=== PATIENT | female | born 1980 | race African-American/Black ===

== ENCOUNTER 2020-12-21 00:56 | Inpatient (IN) | payer BC ==
[2020-12-21] MEDS ORDERED: Terbutaline 1 MG/ML SDV SUBCUT PRN (01:01)
[2020-12-21] MEDS ORDERED: Butorphanol 1 MG/ML SDV IVPUSH PRN (01:01)
[2020-12-21] MEDS ORDERED: Sodium Chloride 0.9% 10 ML Syringe FLUSH PRN (01:01)
[2020-12-21] MEDS ORDERED: hydrOXYzine Pamoate 25 MG Cap PO PRN (01:01)
[2020-12-21] MEDS ORDERED: Methylergonovine 0.2 MG/1 ML Amp IM PRN (01:01)
[2020-12-21] MEDS ORDERED: Misoprostol 200 MCG Tab PO PRN (01:01)
[2020-12-21] MEDS ORDERED: Sodium Chloride 0.9% 2.5 ML Syringe FLUSH PRN (01:01)
[2020-12-21] MEDS ORDERED: Tranexamic Acid 1,000 MG in Sodium Chloride 0.9% 100 ML IV PRN (01:01)
[2020-12-21] MEDS ORDERED: Lidocaine 1% 50 ML MDV INJECT PRN (01:01)
[2020-12-21] MEDS ORDERED: Sodium Chloride 0.9% 10 ML SDV IV PRN (01:01)
[2020-12-21] MEDS ORDERED: Carboprost Tromethamine 250 MCG/1 ML Amp IM PRN (01:01)
[2020-12-21] MEDS ORDERED: Water For Irrigation,Sterile 1,000 ML Container IRR PRN (01:01)
[2020-12-21] MEDS ORDERED: Nalbuphine 10 MG/1 ML Vial IVPUSH PRN (01:01)
[2020-12-21] MEDS ORDERED: Ondansetron 4 MG/2 ML SDV IVPUSH PRN (01:01)
[2020-12-21] MEDS ORDERED: Oxytocin/0.9 % Sodium Chloride 30 UNIT/500 ML BAG IV SCH ×2 (01:15)
[2020-12-21] MEDS ORDERED: Misoprostol 25 MCG (1/4 of 100 MCG) Tab VAG PRN ×2 (02:00→06:00)
[2020-12-21] MEDS ORDERED: Misoprostol 25 MCG (1/4 of 100 MCG) Tab PO PRN ×2 (02:00→06:00)
--- NOTE | 2020-12-21 02:06 | PCM.LDHP ---
L&D History of Present Illness - General Date of Service: 12/21/20 Admit Problem/Dx: Patient Status Order with Admit Dx/Problem 12/21/20 01:03 Patient Status [ADT] Routine Admission Diagnosis/Problem Admission Diagnosis/Problem Source of Information: Patient History Limitations: Reports: No Limitations - History of Present Illness Introduction:: 40yo @ 39w GA here for elective IOL. care c/b AMA status and elevated BPs not requiring treatment. Patient was on aspirin. care otherwise unremarkable: A+, Abs screen neg, RI, RPR NR, HBsAg neg, HIV neg, GC/Chlam neg, GBS neg. Reports mild intermittent Ctx for the past few days. Denies VB, LOF. Reports good FM - Related Data Allergies/Adverse Reactions: Allergies Allergy/AdvReac Type Severity Reaction Status Date / Time No Known Allergies Allergy Verified 12/21/20 03:15 Home Medications: Home Meds Aspirin 81 mg PO DAILY 12/17/20 [History] H&P Review of Systems - Review of Systems: Review Of Systems: See Below General: Reports: No Symptoms HEENT: Reports: No Symptoms Pulmonary: Reports: No Symptoms Cardiovascular: Reports: No Symptoms Gastrointestinal: Reports: No Symptoms Genitourinary: Reports: No Symptoms Musculoskeletal: Reports: No Symptoms Skin: Reports: No Symptoms Psychiatric: Reports: No Symptoms Neurological: Reports: No Symptoms Hematologic/Lymphatic: Reports: No Symptoms Immunologic: Reports: No Symptoms L&D Exam - Exam Exam: See Below - OB Specific Contraction Intensity: Mild Movement: Active Heart Tones: Present Presentation: Vertex Estimated Weight: 7.5lbs - Barger Score Barger Score Cervix Position: Midposition Barger Score Consistency: Medium Barger Score Effacement: 31-50% Barger Score Dilation: 1-2 cm Barger Score Infant's Station: -3 Barger Score Total: 4 - Exam General: Alert, Oriented HEENT: Conjunctiva Clear Lungs: Normal Respiratory Effort Cardiovascular: Regular Rhythm GI/Abdominal Exam: Soft, Non-Tender Extremities: Normal Inspection Skin: Warm, Dry Psychiatric: Alert, Normal Affect, Normal Mood - Patient Data Result Diagrams: 12/21/20 02:20 - Problem List (1) Term SNOMED Code(s): 07503487 ICD Code: Z34.90 - ENCNTR FOR SUPRVSN OF NORMAL , UNSP, UNSP TRIMESTER Status: Acute Current Visit: Yes (2) Encounter for elective induction of labor SNOMED Code(s): 706747260 ICD Code: Z34.90 - ENCNTR FOR SUPRVSN OF NORMAL , UNSP, UNSP TRIMES TER Status: Acute Current Visit: Yes Problem List Initiated/Reviewed/Updated: Yes Orders Last 24hrs: Active Orders 24 hr Category Date Time Status Patient Status [ADT] Routine ADT 12/21/20 01:03 Active Bedrest Bathroom Privileges [RC] ASDIRECTED Care 12/21/20 01:03 Active Communication Order [RC] ASDIRECTED Care 12/21/20 01:03 Active Communication Order [RC] ASDIRECTED Care 12/21/20 01:03 Active Communication Order [RC] ASDIRECTED Care 12/21/20 01:03 Active Heart Tones [RC] CONTINUOUS Care 12/21/20 01:03 Active Non Stress Test [RC] PER UNIT ROUTINE Care 12/21/20 01:03 Active May Shower [RC] ASDIRECTED Care 12/21/20 01:03 Active Notify Provider [RC] PRN Care 12/21/20 01:03 Active Notify Provider [RC] PRN Care 12/21/20 01:03 Active Notify Provider [RC] PRN Care 12/21/20 01:03 Active Notify Provider [RC] STAT Care 12/21/20 01:03 Active Oxygen Therapy [RC] ASDIRECTED Care 12/21/20 01:03 Active Peripheral IV Care [RC] PRN Care 12/21/20 01:01 Active Up ad Zofia [RC] ASDIRECTED Care 12/21/20 01:03 Active Vaginal Exam [RC] PRN Care 12/21/20 01:03 Active Vaginal Exam [RC] PRN Care 12/21/20 01:03 Active Vital Signs [RC] PER UNIT ROUTINE Care 12/21/20 01:03 Active Regular Diet [DIET] Diet 12/21/20 Breakfast Active CBC W/O DIFF,HEMOGRAM [HEME] Routine Lab 12/21/20 01:03 Ordered CORONAVIRUS COVID-19 BONG [MOLEC] Urgent Lab 12/21/20 01:01 Ordered RPR (SYPHILIS SERO) W/ RFLX [REF] Routine Lab 12/21/20 01:03 Ordered TYPE AND SCREEN [BBK] Routine Lab 12/21/20 01:03 Ordered Butorphanol [Stadol] Med 12/21/20 01:01 Active 1 mg IVPUSH Q1H PRN Carboprost Tromethamine [Hemabate DS] Med 12/21/20 01:01 Active 250 mcg IM ASDIRECTED PRN Lactated Ringers [Ringers, Lactated] 1,000 ml Med 12/21/20 01:15 Active IV ASDIRECTED Lidocaine 1% [Xylocaine 1%] Med 12/21/20 01:01 Active 50 ml INJECT ONETIME PRN Methylergonovine [Methergine] Med 12/21/20 01:01 Active 0.2 mg IM ASDIRECTED PRN Nalbuphine [Nubain] Med 12/21/20 01:01 Active 10 mg IVPUSH Q1H PRN Ondansetron [Zofran] Med 12/21/20 01:01 Active 4 mg IVPUSH Q6H PRN Oxytocin/0.9 % Sodium Chloride [Oxytocin 30 Unit/500 ML Med 12/21/20 01:15 Active -NS] 30 unit in 500 ml IV TITRATE Oxytocin/0.9 % Sodium Chloride [Oxytocin 30 Unit/500 ML Med 12/21/20 01:15 Active -NS] 30 unit in 500 ml IV TITRATE Sodium Chloride 0.9% [Normal Saline] Med 12/21/20 01:01 Active 10 ml IV ASDIRECTED PRN Sodium Chloride 0.9% [Saline Flush] Med 12/21/20 01:01 Active 10 ml FLUSH ASDIRECTED PRN Sodium Chloride 0.9% [Saline Flush] Med 12/21/20 01:01 Active 2.5 ml FLUSH ASDIRECTED PRN Terbutaline [Brethine] Med 12/21/20 01:01 Active 0.25 mg SUBCUT ASDIRECTED PRN Tranexamic Acid [Cyklokapron] 1,000 mg Med 12/21/20 01:01 Active Sodium Chloride 0.9% [Normal Saline] 100 ml IV ONETIME Water For Irrigation,Sterile [Sterile Water for Med 12/21/20 01:01 Active Irrigation] 1,000 ml IRR ASDIRECTED PRN hydrOXYzine pamoate [Vistaril] Med 12/21/20 01:01 Active 50 mg PO BEDTIME PRN miSOPROStoL [Cytotec] Med 12/21/20 01:01 Active 200 mcg PO ONETIME PRN miSOPROStoL [Cytotec] Med 12/21/20 02:00 Active 25 mcg PO ONETIME PRN miSOPROStoL [Cytotec] Med 12/21/20 06:00 Active 25 mcg PO Q4H PRN miSOPROStoL [Cytotec] Med 12/21/20 02:00 Active 25 mcg VAG ONETIME PRN miSOPROStoL [Cytotec] Med 12/21/20 06:00 Active 25 mcg VAG Q4H PRN Scalp Electrode [WOMSER] Per Unit Routine Oth 12/21/20 01:03 Ordered Medication Administration Instruction [OM.PC] Q3H Oth 12/21/20 01:15 Ordered Peripheral IV Insertion Adult [OM.PC] Routine Oth 12/21/20 01:03 Ordered Resuscitation Status Routine Resus Stat 12/21/20 01:01 Ordered Medication Orders Butorphanol Tartrate (Butorphanol 1 Mg/Ml Sdv) 1 mg IVPUSH Q1H PRN PRN Reason: Pain Carboprost Tromethamine (Carboprost Tromethamine 250 Mcg/1 Ml Amp) 250 mcg IM ASDIRECTED PRN PRN Reason: Post Hemorrhage Hydroxyzine Pamoate (Hydroxyzine Pamoate 25 Mg Cap) 50 mg PO BEDTIME PRN PRN Reason: Sleep Oxytocin/Sodium Chloride (Oxytocin 30 Unit/500 Ml-Ns) 30 unit in 500 mls @ 999 mls/hr IV TITRATE ANISHA Tranexamic Acid 1,000 mg/ (Sodium Chloride) 110 mls @ 660 mls/hr IV ONETIME PRN PRN Reason: Bleeding Oxytocin/Sodium Chloride (Oxytocin 30 Unit/500 Ml-Ns) 30 unit in 500 mls @ 2 mls/hr IV TITRATE ANISHA; Protocol Lactated Ringer's (Ringers, Lactated) 1,000 mls @ 150 mls/hr IV ASDIRECTED ANISHA Lidocaine HCl (Lidocaine 1% 50 Ml Mdv) 50 ml INJECT ONETIME PRN PRN Reason: Laceration repair Methylergonovine Maleate (Methylergonovine 0.2 Mg/1 Ml Amp) 0.2 mg IM ASDIRECTED PRN PRN Reason: Post Hemorrhage Misoprostol (Misoprostol 200 Mcg Tab) 200 mcg PO ONETIME PRN PRN Reason: Post Hemorrhage Misoprostol (Misoprostol 25 Mcg (1/4 Of 100 Mcg) Tab) 25 mcg VAG ONETIME PRN PRN Reason: Cervical Ripening Misoprostol (Misoprostol 25 Mcg (1/4 Of 100 Mcg) Tab) 25 mcg VAG Q4H PRN PRN Reason: Cervical Ripening Misoprostol (Misoprostol 25 Mcg (1/4 Of 100 Mcg) Tab) 25 mcg PO ONETIME PRN PRN Reason: Cervical Ripening Misoprostol (Misoprostol 25 Mcg (1/4 Of 100 Mcg) Tab) 25 mcg PO Q4H PRN PRN Reason: Cervical Ripening Nalbuphine HCl (Nalbuphine 10 Mg/1 Ml Vial) 10 mg IVPUSH Q1H PRN PRN Reason: Pain (severe 7-10) Ondansetron HCl (Ondansetron 4 Mg/2 Ml Sdv) 4 mg IVPUSH Q6H PRN PRN Reason: Nausea/Vomiting Sodium Chloride (Sodium Chloride 0.9% 10 Ml Syringe) 10 ml FLUSH ASDIRECTED PRN PRN Reason: Keep Vein Open Sodium Chloride (Sodium Chloride 0.9% 2.5 Ml Syringe) 2.5 ml FLUSH ASDIRECTED PRN PRN Reason: Keep Vein Open Sodium Chloride (Sodium Chloride 0.9% 10 Ml Sdv) 10 ml IV ASDIRECTED PRN PRN Reason: IV Use Sterile Water (Water For Irrigation,Sterile 1,000 Ml Container) 1,000 ml IRR ASDIRECTED PRN PRN Reason: delivery Terbutaline Sulfate (Terbutaline 1 Mg/Ml Sdv) 0.25 mg SUBCUT ASDIRECTED PRN PRN Reason: Tacysystole Assessment/Plan Comment:: 40yo @ 39w GA here for elective IOL Reactive strip. Barger score 4 Will start with cytotec for cervical ripening. Discussed off label use, risks and benefits. Patient agreeable. Will augment with pitocin PRN. Epidural PRN
[2020-12-21] MEDS: Lactated Ringers 1,000 ML IV SCH ×2 (06:43→09:57)
[2020-12-21] MEDS ORDERED: Ropivacaine HCl/PF 100 ML ONE (10:08)
[2020-12-21] MEDS ORDERED: Ropivacaine 0.2% PF 2 MG/ML 20 ML SDV ONE (10:08)
[2020-12-21] MEDS ORDERED: fentaNYL 100 MCG/2 ML SDV ONE (10:08)
--- NOTE | 2020-12-21 10:49 | PCM.PREANE ---
Preanesthetic Assessment - Procedure Proposed Procedure: labor epidural - Anesthesia/Transfusion/Family Hx Anesthesia History: No Prior Anesthesia Family History of Anesthesia Reaction: No Transfusion History: No Prior Transfusion(s) - Review of Systems General: No Symptoms Pulmonary: No Symptoms Cardiovascular: Other (gestational HTN) Gastrointestinal: No Symptoms Neurological: No Symptoms Other: Reports: None - Physical Assessment Height: 5 ft 2 in Weight: 84.368 kg ASA Class: 2 Mental Status: Alert & Oriented x3 Airway Class: Mallampati = 1 Dentition: Reports: Normal Dentition Thyro-Mental Finger Breadths: 3 Mouth Opening Finger Breadths: 3 ROM/Head Extension: Full Lungs: Clear to Auscultation, Normal Respiratory Effort Cardiovascular: Regular Rate, Regular Rhythm - Lab Values: Laboratory Last Values WBC 7.07 K/uL (4.0-11.0) 12/21/20 02:20 RBC 4.08 M/uL (4.30-5.90) L 12/21/20 02:20 Hgb 12.6 g/dL (12.0-16.0) 12/21/20 02:20 Hct 37.5 % (36.0-46.0) 12/21/20 02:20 MCV 91.9 fL (80.0-98.0) 12/21/20 02:20 MCH 30.9 pg (27.0-32.0) 12/21/20 02:20 MCHC 33.6 g/dL (31.0-37.0) 12/21/20 02:20 RDW Std Deviation 49.3 fl (28.0-62.0) 12/21/20 02:20 RDW Coeff of Geovanny 15 % (11.0-15.0) 12/21/20 02:20 Plt Count 307 K/uL (150-400) 12/21/20 02:20 MPV 10.50 fL (7.40-12.00) 12/21/20 02:20 Nucleated RBC % 0.0 /100WBC 12/21/20 02:20 Nucleated RBCs # 0 K/uL 12/21/20 02:20 SARS-CoV-2 RNA (BONG) NEGATIVE (NEGATIVE) 12/21/20 02:00 Blood Type A POSITIVE 12/21/20 02:20 Antibody Screen NEGATIVE 12/21/20 02:20 - Allergies Allergies/Adverse Reactions: Allergies Allergy/AdvReac Type Severity Reaction Status Date / Time No Known Allergies Allergy Verified 12/21/20 03:15 - Blood Blood Available: Yes Product(s) Available: PRBC - Anesthesia Plan Pre-Op Medication Ordered: None - Acknowledgements Anesthesia Type Planned: Epidural Pt an Appropriate Candidate for the Planned Anesthesia: Yes Alternatives and Risks of Anesthesia Discussed w Pt/Guardian: Yes Pt/Guardian Understands and Agrees with Anesthesia Plan: Yes PreAnesthesia Questionnaire HEENT History: Reports: Impaired Vision, Other (See Below) Other HEENT History: wears glasses/contact for vision correction Cardiovascular History: Reports: Hypertension, Other (See Below) Other Cardiovascular History: gestational hypertension MALE IMPERSONATOR History: Reports: - Past Surgical History HEENT Surgical History: Reports: None Cardiovascular Surgical History: Reports: None - SUBSTANCE USE Tobacco Use Status *Q: Never Tobacco User Tobacco Use Within Last Twelve Months: No Second Hand Smoke Exposure: No Recreational Drug Use History: No - HOME MEDS Home Medications: Home Meds Aspirin 81 mg PO DAILY 12/17/20 [History] - CURRENT (IN HOUSE) MEDS Current Meds: Current Medications Butorphanol Tartrate (Butorphanol 1 Mg/Ml Sdv) 1 mg IVPUSH Q1H PRN PRN Reason: Pain Carboprost Tromethamine (Carboprost Tromethamine 250 Mcg/1 Ml Amp) 250 mcg IM ASDIRECTED PRN PRN Reason: Post Hemorrhage Hydroxyzine Pamoate (Hydroxyzine Pamoate 25 Mg Cap) 50 mg PO BEDTIME PRN PRN Reason: Sleep Oxytocin/Sodium Chloride (Oxytocin 30 Unit/500 Ml-Ns) 30 unit in 500 mls @ 999 mls/hr IV TITRATE ANISHA Tranexamic Acid 1,000 mg/ (Sodium Chloride) 110 mls @ 660 mls/hr IV ONETIME PRN PRN Reason: Bleeding Oxytocin/Sodium Chloride (Oxytocin 30 Unit/500 Ml-Ns) 30 unit in 500 mls @ 2 mls/hr IV TITRATE ANISHA; Protocol Last Titration: 12/21/20 09:20 Dose: 6 munits/min, 6 mls/hr Documented by: Lactated Ringer's (Ringers, Lactated) 1,000 mls @ 150 mls/hr IV ASDIRECTED ANISHA Last Admin: 12/21/20 09:57 Dose: 999 mls/hr Documented by: Lidocaine HCl (Lidocaine 1% 50 Ml Mdv) 50 ml INJECT ONETIME PRN PRN Reason: Laceration repair Methylergonovine Maleate (Methylergonovine 0.2 Mg/1 Ml Amp) 0.2 mg IM ASDIRECTED PRN PRN Reason: Post Hemorrhage Misoprostol (Misoprostol 200 Mcg Tab) 200 mcg PO ONETIME PRN PRN Reason: Post Hemorrhage Misoprostol (Misoprostol 25 Mcg (1/4 Of 100 Mcg) Tab) 25 mcg VAG ONETIME PRN PRN Reason: Cervical Ripening Last Admin: 12/21/20 03:30 Dose: 25 mcg Documented by: Misoprostol (Misoprostol 25 Mcg (1/4 Of 100 Mcg) Tab) 25 mcg VAG Q4H PRN PRN Reason: Cervical Ripening Misoprostol (Misoprostol 25 Mcg (1/4 Of 100 Mcg) Tab) 25 mcg PO ONETIME PRN PRN Reason: Cervical Ripening Last Admin: 12/21/20 03:27 Dose: 25 mcg Documented by: Misoprostol (Misoprostol 25 Mcg (1/4 Of 100 Mcg) Tab) 25 mcg PO Q4H PRN PRN Reason: Cervical Ripening Nalbuphine HCl (Nalbuphine 10 Mg/1 Ml Vial) 10 mg IVPUSH Q1H PRN PRN Reason: Pain (severe 7-10) Ondansetron HCl (Ondansetron 4 Mg/2 Ml Sdv) 4 mg IVPUSH Q6H PRN PRN Reason: Nausea/Vomiting Sodium Chloride (Sodium Chloride 0.9% 10 Ml Syringe) 10 ml FLUSH ASDIRECTED PRN PRN Reason: Keep Vein Open Sodium Chloride (Sodium Chloride 0.9% 2.5 Ml Syringe) 2.5 ml FLUSH ASDIRECTED PRN PRN Reason: Keep Vein Open Sodium Chloride (Sodium Chloride 0.9% 10 Ml Sdv) 10 ml IV ASDIRECTED PRN PRN Reason: IV Use Sterile Water (Water For Irrigation,Sterile 1,000 Ml Container) 1,000 ml IRR ASDIRECTED PRN PRN Reason: delivery Terbutaline Sulfate (Terbutaline 1 Mg/Ml Sdv) 0.25 mg SUBCUT ASDIRECTED PRN PRN Reason: Tacysystole Discontinued Medications Fentanyl (Fentanyl 100 Mcg/2 Ml Sdv) Confirm Administered Dose 100 mcg .ROUTE .[facility] Stop: 12/21/20 10:09 Ropivacaine (Naropin 0.2%) Confirm Administered Dose 100 mls @ as directed .ROUTE .[facility] Stop: 12/21/20 10:09 Ropivacaine (Ropivacaine 0.2% Pf 2 Mg/Ml 20 Ml Sdv) Confirm Administered Dose 20 ml .ROUTE .[facility] Stop: 12/21/20 10:09
[2020-12-21] MEDS ORDERED: Ondansetron 4 MG/2 ML SDV ONE (10:58)
[2020-12-21] MEDS ORDERED: Lanolin 100% Cream 7 GM Tube TOP PRN (13:49)
[2020-12-21] MEDS ORDERED: Ibuprofen 400 MG Tab PO PRN (13:49)
[2020-12-21] MEDS ORDERED: Witch Hazel Medicated Pads 40/Jar TOP PRN (13:49)
[2020-12-21] MEDS ORDERED: Docusate Sodium 100 MG Cap PO PRN (13:49)
[2020-12-21] MEDS ORDERED: Bisacodyl 10 MG Supp RECTAL PRN (13:49)
[2020-12-21] MEDS ORDERED: Benzocaine/Menthol 20%-0.5% Spray 78 GM Cannister TOP PRN (13:49)
[2020-12-21] MEDS ORDERED: Acetaminophen 500 MG Tab PO PRN ×2 (13:49)
--- NOTE | 2020-12-21 15:14 | PCM.DEL ---
L & D Note - General Info Date of Service: 12/21/20 Mother's Due Date: 12/28/20 - Delivery Note Labor: Induced by ARM Delivery Outcome: Livebirth Infant Delivery Method: Spontaneous Vaginal Delivery-Single Delivery Mode: Spontaneous Presentation: Vertex Nuchal Cord: None Anesthesia Type: Epidural Amniotic Fluid Description: Clear Episiotomy Type: None Laceration: None Placenta: Intact, Spontaneous Cord: 3 Vessels Estimated Blood Loss: 150 Resuscitation Needed: No : Suctioned Score 1 min: 6 Score 5 min: 9 Delivery Comments (Free Text/Narrative):: 40yo G3 now P3003 S/P uncomplicated vaginal delivery @ 39w GA Normal spontaneous vaginal delivery, of live female infant, over an intact perineum with epidural anesthesia. No meconium or nuchal cord present. Spontaneous delivery of placenta with 3-vessel cord. No lacerations noted. All sponges and instrument counts correct. Delivery details: Female infant Weight: 6'0" : 6/9 EBL 150cc Induction Criteria - Barger Score Barger Score Dilation: 1-2 cm Barger Score Effacement: 0-30% Barger Score 's Station: -2 Barger Score Consistency: Medium Barger Score Cervix Position: Midposition Barger Score Total: 4 Barger Score Presenting Part: Reports: Cephalic - Induction Gestational Age >/= 39 wks: Yes Medical Indication: Elective Estimated Pelvis: Reports: Adequate Reassuring Monitoring Strip: Yes Absence of Tachy Systole: No - Augmentation Estimated Pelvis: Reports: Adequate Weight Estimated:: Reports: AGA Estimated Weight if LGA: 7.5 kg Reassuring Monitoring Strip: Yes Absence of Tachy Systole: Yes - General Info Date of Service: 12/21/20 Subjective Update: S/P Uncomplicated VD after elective IOL. Mom and baby are doing well. Functional Status: Reports: Pain Controlled - Review of Systems General: Reports: No Symptoms HEENT: Reports: No Symptoms Pulmonary: Reports: No Symptoms Cardiovascular: Reports: No Symptoms Gastrointestinal: Reports: No Symptoms Genitourinary: Reports: No Symptoms Musculoskeletal: Reports: No Symptoms Skin: Reports: No Symptoms Neurological: Reports: No Symptoms Psychiatric: Reports: No Symptoms - Patient Data Weight - Most Recent: 84.368 kg I&O - Last 24 Hours: Intake & Output 12/21/20 12/21/20 12/21/20 06:59 14:59 22:59 Intake Total 1000 1500 Output Total 500 Balance 500 1500 Lab Results Last 24 Hours: Laboratory Results - last 24 hr 12/21/20 12/21/20 12/21/20 Range/Units 02:00 02:20 02:20 WBC 7.07 (4.0-11.0) K/uL RBC 4.08 L (4.30-5.90) M/uL Hgb 12.6 (12.0-16.0) g/dL Hct 37.5 (36.0-46.0) % MCV 91.9 (80.0-98.0) fL MCH 30.9 (27.0-32.0) pg MCHC 33.6 (31.0-37.0) g/dL RDW Std Deviation 49.3 (28.0-62.0) fl RDW Coeff of Geovanny 15 (11.0-15.0) % Plt Count 307 (150-400) K/uL MPV 10.50 (7.40-12.00) fL Nucleated RBC % 0.0 /100WBC Nucleated RBCs # 0 K/uL SARS-CoV-2 RNA (BONG) NEGATIVE (NEGATIVE) Blood Type A POSITIVE Antibody Screen NEGATIVE Med Orders - Current: Current Medications Acetaminophen (Acetaminophen 500 Mg Tab) 500 mg PO Q4H PRN PRN Reason: Pain Acetaminophen (Acetaminophen 500 Mg Tab) 1,000 mg PO Q4H PRN PRN Reason: Pain Benzocaine/Menthol (Benzocaine/Menthol 20%-0.5% [place] 78 Gm Cannister) 78 gm TOP ASDIRECTED PRN PRN Reason: Perineal Comfort Measure Bisacodyl (Bisacodyl 10 Mg Supp) 10 mg RECTAL ONETIME PRN PRN Reason: Constipation Butorphanol Tartrate (Butorphanol 1 Mg/Ml Sdv) 1 mg IVPUSH Q1H PRN PRN Reason: Pain Carboprost Tromethamine (Carboprost Tromethamine 250 Mcg/1 Ml Amp) 250 mcg IM ASDIRECTED PRN PRN Reason: Post Hemorrhage Docusate Sodium (Docusate Sodium 100 Mg Cap) 100 mg PO BID PRN PRN Reason: Constipation Emollient Ointment (Lanolin 100% Cream 7 Gm Tube) 0 gm TOP ASDIRECTED PRN PRN Reason: Sore Nipples Hydroxyzine Pamoate (Hydroxyzine Pamoate 25 Mg Cap) 50 mg PO BEDTIME PRN PRN Reason: Sleep Oxytocin/Sodium Chloride (Oxytocin 30 Unit/500 Ml-Ns) 30 unit in 500 mls @ 999 mls/hr IV TITRATE ANISHA Tranexamic Acid 1,000 mg/ (Sodium Chloride) 110 mls @ 660 mls/hr IV ONETIME PRN PRN Reason: Bleeding Oxytocin/Sodium Chloride (Oxytocin 30 Unit/500 Ml-Ns) 30 unit in 500 mls @ 2 mls/hr IV TITRATE ANISHA; Protocol Last Titration: 12/21/20 13:07 Dose: 999 munits/min, 999 mls/hr Documented by: Lactated Ringer's (Ringers, Lactated) 1,000 mls @ 150 mls/hr IV ASDIRECTED ANISHA Last Infusion: 12/21/20 11:11 Dose: Infused Documented by: Ibuprofen (Ibuprofen 400 Mg Tab) 400 mg PO Q4H PRN PRN Reason: Pain Ibuprofen (Ibuprofen 800 Mg Tab) 800 mg PO Q6H PRN PRN Reason: Pain Lidocaine HCl (Lidocaine 1% 50 Ml Mdv) 50 ml INJECT ONETIME PRN PRN Reason: Laceration repair Methylergonovine Maleate (Methylergonovine 0.2 Mg/1 Ml Amp) 0.2 mg IM ASDIRECTED PRN PRN Reason: Post Hemorrhage Misoprostol (Misoprostol 200 Mcg Tab) 200 mcg PO ONETIME PRN PRN Reason: Post Hemorrhage Misoprostol (Misoprostol 25 Mcg (1/4 Of 100 Mcg) Tab) 25 mcg VAG ONETIME PRN PRN Reason: Cervical Ripening Last Admin: 12/21/20 03:30 Dose: 25 mcg Documented by: Misoprostol (Misoprostol 25 Mcg (1/4 Of 100 Mcg) Tab) 25 mcg VAG Q4H PRN PRN Reason: Cervical Ripening Misoprostol (Misoprostol 25 Mcg (1/4 Of 100 Mcg) Tab) 25 mcg PO ONETIME PRN PRN Reason: Cervical Ripening Last Admin: 12/21/20 03:27 Dose: 25 mcg Documented by: Misoprostol (Misoprostol 25 Mcg (1/4 Of 100 Mcg) Tab) 25 mcg PO Q4H PRN PRN Reason: Cervical Ripening Nalbuphine HCl (Nalbuphine 10 Mg/1 Ml Vial) 10 mg IVPUSH Q1H PRN PRN Reason: Pain (severe 7-10) Ondansetron HCl (Ondansetron 4 Mg/2 Ml Sdv) 4 mg IVPUSH Q6H PRN PRN Reason: Nausea/Vomiting Sodium Chloride (Sodium Chloride 0.9% 10 Ml Syringe) 10 ml FLUSH ASDIRECTED PRN PRN Reason: Keep Vein Open Sodium Chloride (Sodium Chloride 0.9% 2.5 Ml Syringe) 2.5 ml FLUSH ASDIRECTED PRN PRN Reason: Keep Vein Open Sodium Chloride (Sodium Chloride 0.9% 10 Ml Sdv) 10 ml IV ASDIRECTED PRN PRN Reason: IV Use Sterile Water (Water For Irrigation,Sterile 1,000 Ml Container) 1,000 ml IRR ASDIRECTED PRN PRN Reason: delivery Terbutaline Sulfate (Terbutaline 1 Mg/Ml Sdv) 0.25 mg SUBCUT ASDIRECTED PRN PRN Reason: Tacysystole Witch Lesa (Witch Lesa Medicated Pads 40/Jar) 1 pad TOP ASDIRECTED PRN PRN Reason: comfort care Discontinued Medications Fentanyl (Fentanyl 100 Mcg/2 Ml Sdv) Confirm Administered Dose 100 mcg .ROUTE . [facility] ONE Stop: 12/21/20 10:09 Ropivacaine (Naropin 0.2%) Confirm Administered Dose 100 mls @ as directed .ROUTE .[facility] ONE Stop: 12/21/20 10:09 Ondansetron HCl (Ondansetron 4 Mg/2 Ml Sdv) Confirm Administered Dose 4 mg .ROUTE .[facility] ONE Stop: 12/21/20 10:59 Ropivacaine (Ropivacaine 0.2% Pf 2 Mg/Ml 20 Ml Sdv) Confirm Administered Dose 20 ml .ROUTE .[facility] ONE Stop: 12/21/20 10:09 - Exam General: Alert, Oriented HEENT: Pupils Equal Lungs: Normal Respiratory Effort Cardiovascular: Regular Rate GI/Abdominal Exam: Normal Bowel Sounds (Female) Exam: Normal External Exam Extremities: Normal Inspection Skin: Warm, Dry Psy/Mental Status: Alert, Normal Affect, Normal Mood - Problem List & Annotations (1) Term SNOMED Code(s): 53549571 Code(s): Z34.90 - ENCNTR FOR SUPRVSN OF NORMAL , UNSP, UNSP TRIMESTER Status: Acute Current Visit: Yes (2) Encounter for elective induction of labor SNOMED Code(s): 099765626 Code(s): Z34.90 - ENCNTR FOR SUPRVSN OF NORMAL , UNSP, UNSP TRIMESTER Status: Acute Current Visit: Yes - Problem List Review Problem List Initiated/Reviewed/Updated: Yes - My Orders Last 24 Hours: My Active Orders 12/21/20 13:49 Patient Status [ADT] Routine May Shower [RC] ASDIRECTED Up ad Zofia [RC] ASDIRECTED Vital Signs [RC] PER UNIT ROUTINE Acetaminophen [Tylenol Extra Strength] 1,000 mg PO Q4H PRN Acetaminophen [Tylenol Extra Strength] 500 mg PO Q4H PRN Benzocaine/Menthol [Dermoplast Pain Relief 20%-0.5% [place]] 78 gm TOP ASDIRECTED PRN Docusate Sodium [Colace] 100 mg PO BID PRN Ibuprofen [Motrin] 400 mg PO Q4H PRN Ibuprofen [Motrin] 800 mg PO Q6H PRN Lanolin [Lansinoh HPA] See Dose Instructions TOP ASDIRECTED PRN bisacodyL [Dulcolax] 10 mg RECTAL ONETIME PRN witch Lesa [Tucks] 1 pad TOP ASDIRECTED PRN Assess Lochia [WOMSER] Per Unit Routine Assess Uterine Involution [WOMSER] Per Unit Routine Peripheral IV Discontinue [OM.PC] Routine 12/22/20 05:11 HEMOGLOBIN/HEMATOCRIT,HH [HEME] Timed - Plan Plan:: 40yo G3 now P3003 S/P uncomplicated vaginal delivery @ 39w GA, after elective IOL Mother and baby are doing well. P: Routine care
--- NOTE | 2020-12-21 19:45 | PCM48HPAN ---
Post Anesthesia Note - EVALUATION WITHIN 48HRS OF ANESTHETIC Vital Signs in Normal Range: Yes Patient Participated in Evaluation: Yes Respiratory Function Stable: Yes Airway Patent: Yes Cardiovascular Function Stable: Yes Hydration Status Stable: Yes Pain Control Satisfactory: Yes Nausea and Vomiting Control Satisfactory: Yes Mental Status Recovered: Yes Vital Signs: Last Vital Signs Temp 36.2 C 12/21/20 17:00 Pulse 105 H 12/21/20 17:00 Resp 16 12/21/20 17:00 BP 159/87 H 12/21/20 17:00 Pulse Ox 98 12/21/20 17:00
[2020-12-21] MEDS: Ibuprofen 800 MG Tab PO PRN (20:02)
[2020-12-22] MEDS: Ibuprofen 800 MG Tab PO PRN (05:08)
--- NOTE | 2020-12-22 13:34 | PCM.DCSUM1 ---
Discharge Summary - Hospital Course Free Text/Narrative:: 40yo G3 now [id number] S/P uncomplicated vaginal delivery @ 39w GA, after elective IOL. Patient had a care c/b AMA status and elevated BPs. She was on aspirin. IOL was started with cervical ripening (with cytotec) then augmentation with pitocin. Patient received the epidural. Delivery details: Female Weight: 6'0" : 6/9 EBL 150cc course unremarkable, Mother and baby are well . Diagnosis: Stroke: No - Discharge Data Discharge Date: 12/22/20 Discharge Disposition: Home, Self-Care 01 Condition: Good - Referral to Home Health Primary Care Physician: PCP None - Discharge Diagnosis/Problem(s) (1) Term SNOMED Code(s): 28420893 ICD Code: Z34.90 - ENCNTR FOR SUPRVSN OF NORMAL , UNSP, UNSP TRIMESTER Status: Acute Current Visit: Yes (2) Encounter for elective induction of labor SNOMED Code(s): 494798623 ICD Code: Z34.90 - ENCNTR FOR SUPRVSN OF NORMAL , UNSP, UNSP TRIMESTER Status: Acute Current Visit: Yes - Patient Instructions Diet: Regular Diet as Tolerated Activity: As Tolerated - Discharge Plan *PRESCRIPTION DRUG MONITORING PROGRAM REVIEWED*: Not Applicable *COPY OF PRESCRIPTION DRUG MONITORING REPORT IN PATIENT KOMAL: Not Applicable Home Medications: Home Meds Aspirin 81 mg PO DAILY 12/17/20 [History] Patient Handouts: Baby Blues, Care After Vaginal Delivery - Discharge Summary/Plan Comment DC Time >30 min.: Yes Discharge Summary/Plan Comment: Patient most BPs have been below 150/90. She had 1 episode of BP 170/90 while she was in pain. After ibuprofen was administered, the BP was rescheked and went below 130/80's. Patient was recommended to come to clinic within the next 3 days, during the visit, and have her BP checked. She is agreeable with the plan. Provider went over warnings signs of pre-eclampsia and returns precautions. Patient expresses understanding. - General Info Date of Service: 12/22/20 Admission Dx/Problem (Free Text: Patient Status Order with Admit Dx/Problem 12/21/20 01:03 Patient Status [ADT] Routine Admission Diagnosis/Problem Admission Diagnosis/Problem Subjective Update: S/P Uncomplicated VD after elective IOL. Mom and baby are doing well. Functional Status: Reports: Pain Controlled - Review of Systems General: Reports: No Symptoms HEENT: Reports: No Symptoms Pulmonary: Reports: No Symptoms Cardiovascular: Reports: No Symptoms Gastrointestinal: Reports: No Symptoms Genitourinary: Reports: No Symptoms Musculoskeletal: Reports: No Symptoms Skin: Reports: No Symptoms Neurological: Reports: No Symptoms Psychiatric: Reports: No Symptoms - Patient Data Vitals - Most Recent: Last Vital Signs Temp 97.2 F 12/22/20 08:00 Pulse 84 12/22/20 08:00 Resp 19 12/22/20 08:00 BP 117/83 12/22/20 08:00 Pulse Ox 99 12/22/20 08:00 Weight - Most Recent: 84.368 kg I&O - Last 24 hours: Intake & Output 12/21/20 12/22/20 12/22/20 22:59 06:59 14:59 Intake Total 1500 Balance 1500 Lab Results - Last 24 hrs: Laboratory Results - last 24 hr 12/22/20 Range/Units 06:45 Hgb 13.0 (12.0-16.0) g/dL Hct 38.1 (36.0-46.0) % Med Orders - Current: Current Medications Acetaminophen (Acetaminophen 500 Mg Tab) 500 mg PO Q4H PRN PRN Reason: Pain Acetaminophen (Acetaminophen 500 Mg Tab) 1,000 mg PO Q4H PRN PRN Reason: Pain Benzocaine/Menthol (Benzocaine/Menthol 20%-0.5% [place] 78 Gm Cannister) 78 gm TOP ASDIRECTED PRN PRN Reason: Perineal Comfort Measure Last Admin: 12/21/20 15:39 Dose: 1 spray Documented by: Bisacodyl (Bisacodyl 10 Mg Supp) 10 mg RECTAL ONETIME PRN PRN Reason: Constipation Butorphanol Tartrate (Butorphanol 1 Mg/Ml Sdv) 1 mg IVPUSH Q1H PRN PRN Reason: Pain Carboprost Tromethamine (Carboprost Tromethamine 250 Mcg/1 Ml Amp) 250 mcg IM ASDIRECTED PRN PRN Reason: Post Hemorrhage Docusate Sodium (Docusate Sodium 100 Mg Cap) 100 mg PO BID PRN PRN Reason: Constipation Emollient Ointment (Lanolin 100% Cream 7 Gm Tube) 0 gm TOP ASDIRECTED PRN PRN Reason: Sore Nipples Last Admin: 12/21/20 15:39 Dose: 1 applic Documented by: Hydroxyzine Pamoate (Hydroxyzine Pamoate 25 Mg Cap) 50 mg PO BEDTIME PRN PRN Reason: Sleep Oxytocin/Sodium Chloride (Oxytocin 30 Unit/500 Ml-Ns) 30 unit in 500 mls @ 999 mls/hr IV TITRATE ANISHA Tranexamic Acid 1,000 mg/ (Sodium Chloride) 110 mls @ 660 mls/hr IV ONETIME PRN PRN Reason: Bleeding Oxytocin/Sodium Chloride (Oxytocin 30 Unit/500 Ml-Ns) 30 unit in 500 mls @ 2 mls/hr IV TITRATE ANISHA; Protocol Last Titration: 12/21/20 13:07 Dose: 999 munits/min, 999 mls/hr Documented by: Lactated Ringer's (Ringers, Lactated) 1,000 mls @ 150 mls/hr IV ASDIRECTED ANISHA Last Infusion: 12/21/20 11:11 Dose: Infused Documented by: Ibuprofen (Ibuprofen 400 Mg Tab) 400 mg PO Q4H PRN PRN Reason: Pain Ibuprofen (Ibuprofen 800 Mg Tab) 800 mg PO Q6H PRN PRN Reason: Pain Last Admin: 12/22/20 05:08 Dose: 800 mg Documented by: Lidocaine HCl (Lidocaine 1% 50 Ml Mdv) 50 ml INJECT ONETIME PRN PRN Reason: Laceration repair Methylergonovine Maleate (Methylergonovine 0.2 Mg/1 Ml Amp) 0.2 mg IM ASDIRECTED PRN PRN Reason: Post Hemorrhage Misoprostol (Misoprostol 200 Mcg Tab) 200 mcg PO ONETIME PRN PRN Reason: Post Hemorrhage Misoprostol (Misoprostol 25 Mcg (1/4 Of 100 Mcg) Tab) 25 mcg VAG ONETIME PRN PRN Reason: Cervical Ripening Last Admin: 12/21/20 03:30 Dose: 25 mcg Documented by: Misoprostol (Misoprostol 25 Mcg (1/4 Of 100 Mcg) Tab) 25 mcg VAG Q4H PRN PRN Reason: Cervical Ripening Misoprostol (Misoprostol 25 Mcg (1/4 Of 100 Mcg) Tab) 25 mcg PO ONETIME PRN PRN Reason: Cervical Ripening Last Admin: 12/21/20 03:27 Dose: 25 mcg Documented by: Misoprostol (Misoprostol 25 Mcg (1/4 Of 100 Mcg) Tab) 25 mcg PO Q4H PRN PRN Reason: Cervical Ripening Nalbuphine HCl (Nalbuphine 10 Mg/1 Ml Vial) 10 mg IVPUSH Q1H PRN PRN Reason: Pain (severe 7-10) Ondansetron HCl (Ondansetron 4 Mg/2 Ml Sdv) 4 mg IVPUSH Q6H PRN PRN Reason: Nausea/Vomiting Sodium Chloride (Sodium Chloride 0.9% 10 Ml Syringe) 10 ml FLUSH ASDIRECTED PRN PRN Reason: Keep Vein Open Sodium Chloride (Sodium Chloride 0.9% 2.5 Ml Syringe) 2.5 ml FLUSH ASDIRECTED PRN PRN Reason: Keep Vein Open Sodium Chloride (Sodium Chloride 0.9% 10 Ml Sdv) 10 ml IV ASDIRECTED PRN PRN Reason: IV Use Sterile Water (Water For Irrigation,Sterile 1,000 Ml Container) 1,000 ml IRR ASDIRECTED PRN PRN Reason: delivery Terbutaline Sulfate (Terbutaline 1 Mg/Ml Sdv) 0.25 mg SUBCUT ASDIRECTED PRN PRN Reason: Tacysystole Witch Lesa (Witch Lesa Medicated Pads 40/Jar) 1 pad TOP ASDIRECTED PRN PRN Reason: comfort care Last Admin: 12/21/20 15:38 Dose: 1 container Documented by: Discontinued Medications Fentanyl (Fentanyl 100 Mcg/2 Ml Sdv) Confirm Administered Dose 100 mcg .ROUTE .AutoeBid-Placecast ONE Stop: 12/21/20 10:09 Last Admin: 12/21/20 21:08 Dose: Not Given Documented by: Ropivacaine (Naropin 0.2%) Confirm Administered Dose 100 mls @ as directed .ROUTE .AutoeBid-MED ONE Stop: 12/21/20 10:09 Last Admin: 12/21/20 21:08 Dose: Not Given Documented by: Ondansetron HCl (Ondansetron 4 Mg/2 Ml Sdv) Confirm Administered Dose 4 mg .ROUTE .STFOCUS Trainr-MED ONE Stop: 12/21/20 10:59 Ropivacaine (Ropivacaine 0.2% Pf 2 Mg/Ml 20 Ml Sdv) Confirm Administered Dose 20 ml .ROUTE .AutoeBid-MED ONE Stop: 12/21/20 10:09 Last Admin: 12/21/20 21:07 Dose: Not Given Documented by: - Exam General: Reports: Alert, Oriented Neck: Reports: Supple Lungs: Reports: Normal Respiratory Effort Cardiovascular: Reports: Regular Rate GI/Abdominal Exam: Soft, Non-Tender Extremities: Normal Inspection, Non-Tender, No Pedal Edema Skin: Reports: Warm, Dry Psy/Mental Status: Reports: Alert, Normal Affect, Normal Mood
== END 2020-12-22 15:53 | disposition home or self-care (01) | DRG 560 ==
LOC: MW.OBCHECK 00:56 → MW.OB 00:58 → MW.OBCHECK 01:03 → MW.OB 01:03 → OBSVTOIN 13:49 → MW.OB 16:30
PROVIDERS: ADMIT Obstetrics & Gynecology Obstetrics; ATTEND Obstetrics & Gynecology Obstetrics
PROC: 10907ZC Drainage of Amniotic Fluid, Therapeutic from Products of Conception, Via Natural or Artificial Opening (ICD-10-PCS; principal; 2020-12-21)
PROC: 3E0P7VZ Introduction of Hormone into Female Reproductive, Via Natural or Artificial Opening (ICD-10-PCS; 2020-12-21)
PROC: 10E0XZZ Delivery of Products of Conception, External Approach (ICD-10-PCS; 2020-12-21)
PROC: 3E0R3BZ Introduction of Anesthetic Agent into Spinal Canal, Percutaneous Approach (ICD-10-PCS; 2020-12-21)
DX: O13.4 Gestational [pregnancy-induced] hypertension without significant proteinuria, complicating childbirth (principal); Z3A.39 39 weeks gestation of pregnancy; Z37.0 Single live birth; Z20.822 Contact with and (suspected) exposure to COVID-19
CPT/HCPCS: 36415; 51702; 59025; 59409; 85014; 85018; 85027; 86592; 86850; 86900; 86901; A9270-GY; J2405; J2590; J2795; J3010; J7120; U0002

== ENCOUNTER 2022-08-13 13:07 | Emergency (ER) | payer BC, OTHER ==
[2022-08-13] MEDS ORDERED: Acetaminophen 500 MG Tab PO ONE (13:17)
[2022-08-13] MEDS ORDERED: Diphtheria,Pertussis(Acell),Tetanus Vaccine 0.5 ML Syringe IM ONE (13:18)
== END 2022-08-13 13:58 | disposition home or self-care (01) ==
LOC: MW.ED 13:07
DX: T33.522A Superficial frostbite of left hand, initial encounter (principal); T33.521A Superficial frostbite of right hand, initial encounter; X31.XXXA Exposure to excessive natural cold, initial encounter
CPT/HCPCS: 99283; A9270

== ENCOUNTER 2023-03-24 15:40 | Inpatient (IN) | payer MEDICAID ==
[2023-03-24] MEDS ORDERED: Water For Irrigation,Sterile 1,000 ML Container IRR PRN (16:04)
[2023-03-24] MEDS ORDERED: Misoprostol 200 MCG Tab PO PRN (16:04)
[2023-03-24] MEDS ORDERED: Tranexamic Acid 1,000 MG in Sodium Chloride 0.9% 100 ML IV PRN (16:04)
[2023-03-24] MEDS ORDERED: Sodium Chloride 0.9% 2.5 ML Syringe FLUSH PRN (16:04)
[2023-03-24] MEDS ORDERED: Sodium Chloride 0.9% 10 ML Syringe FLUSH PRN (16:04)
[2023-03-24] MEDS ORDERED: Sodium Chloride 0.9% 20 ML SDV IV PRN (16:04)
[2023-03-24] MEDS ORDERED: Lidocaine 1% 50 ML MDV INJECT PRN (16:04)
[2023-03-24] MEDS ORDERED: Butorphanol 1 MG/ML SDV IVPUSH PRN (16:04)
[2023-03-24] MEDS ORDERED: Methylergonovine 0.2 MG/1 ML Amp IM PRN (16:04)
[2023-03-24] MEDS ORDERED: Carboprost Tromethamine 250 MCG/1 mL Vial IM PRN (16:04)
[2023-03-24] MEDS ORDERED: Ondansetron 4 MG/2 ML SDV IVPUSH PRN (16:10)
[2023-03-24] MEDS ORDERED: Oxytocin/0.9 % Sodium Chloride 30 UNIT/500 ML BAG IV SCH ×2 (16:15→23:00)
[2023-03-24 16:30] LABS: APPEARANCE,URINE CLEAR; BILIRUBIN,URINE NEGATIVE (NEGATIVE); COLOR,URINE YELLOW; GLUCOSE,URINE NEGATIVE (NEGATIVE); KETONES,URINE NEGATIVE (NEGATIVE); LEUKOCYTE ESTERASE,URINE NEGATIVE (NEGATIVE); NITRITE,URINE NEGATIVE (NEGATIVE); OCCULT BLOOD,URINE NEGATIVE (NEGATIVE); PH,URINE 5.5 (5.0-8.0); PROTEIN,URINE NEGATIVE (NEGATIVE); UROBILINOGEN,URINE 0.2 EU/dL (<2.0)
[2023-03-24] MEDS ORDERED: ePHEDrine 50 MG/ML SDV IVPUSH PRN ×2 (17:20)
[2023-03-24 17:23] LABS: HEMATOCRIT 36.5 % (36.0-46.0); HEMOGLOBIN 12.2 g/dL (12.0-16.0); MEAN CORPUSCULAR HEMOGLOBIN 29.8 pg (27.0-32.0); MEAN CORPUSCULAR HGB CONC 33.4 g/dL (31.0-37.0); MEAN PLATELET VOLUME 11.4 fL (7.40-12.00); RED BLOOD CELL COUNT 4.1 M/uL (4.30-5.90); WHITE BLOOD CELL COUNT,WBC 6.25 K/uL (4.0-11.0)
[2023-03-24] MEDS ORDERED: Ropivacaine HCl/PF 400 MG in Premix Bag 1 BAG EPIDUR SCH (17:30)
[2023-03-24] MEDS ORDERED: Labetalol 100 MG/20 ML MDV ONE (22:30)
[2023-03-24] MEDS ORDERED: Labetalol 100 MG/20 ML MDV IVPUSH PRN (22:30)
[2023-03-24] MEDS ORDERED: Terbutaline 1 MG/ML SDV SUBCUT PRN (22:48)
[2023-03-24] MEDS ORDERED: Ampicillin 2 GM in Sodium Chloride 0.9% 100 ML IV ONE (22:53)
[2023-03-24] MEDS: Lactated Ringers 1,000 ML IV SCH (23:07)
[2023-03-25] MEDS ORDERED: Lidocaine 2% with EPINEPHrine 1:200,000 20 ML SDV ONE (00:32)
[2023-03-25] MEDS ORDERED: Dexmedetomidine 200 MCG/2 ML SDV ONE (00:32)
[2023-03-25] MEDS: Phenylephrine HCl 0.5 MG/5 ML AMP IVPUSH PRN ×4 (00:50→01:12)
[2023-03-25] MEDS: Lactated Ringers 1,000 ML IV SCH ×3 (00:54→06:48)
[2023-03-25] MEDS: Ampicillin 1 GM in Sodium Chloride 0.9% 50 ML IV SCH ×3 (02:54→11:11)
[2023-03-25] MEDS ORDERED: Labetalol 100 MG Tab PO ONE (10:23)
[2023-03-25] MEDS ORDERED: Ibuprofen 800 MG Tab PO PRN (15:45)
[2023-03-25] MEDS ORDERED: Benzocaine/Menthol 20%-0.5% Spray 78 GM Cannister TOP PRN (15:45)
[2023-03-25] MEDS ORDERED: Lanolin 100% Cream 7 GM Tube TOP PRN (15:45)
[2023-03-25] MEDS ORDERED: Acetaminophen 500 MG Tab PO PRN (15:45)
[2023-03-25] MEDS ORDERED: Ibuprofen 400 MG Tab PO PRN (15:45)
[2023-03-25] MEDS ORDERED: Bisacodyl 10 MG Supp RECTAL PRN (15:45)
[2023-03-25] MEDS ORDERED: Docusate Sodium 100 MG Cap PO PRN (15:45)
[2023-03-25] MEDS ORDERED: Witch Hazel Medicated Pads 40/Jar TOP PRN (15:45)
[2023-03-25] MEDS: Acetaminophen 500 MG Tab PO PRN (16:25)
[2023-03-26] MEDS: Acetaminophen 500 MG Tab PO PRN ×2 (00:48→08:46)
[2023-03-26 06:28] LABS: HEMATOCRIT 32.9 % (36.0-46.0); HEMOGLOBIN 10.7 g/dL (12.0-16.0)
== END 2023-03-26 17:03 | disposition home or self-care (01) | DRG 807 ==
LOC: MW.OBCHECK 15:40 → MW.OB 15:40 → MW.OBCHECK 16:04 → MW.OB 16:05 → OBSVTOIN 03-25 14:33 → MW.OB 03-25 22:17
PROVIDERS: ADMIT Obstetrics & Gynecology; ATTEND Obstetrics & Gynecology
PROC: 10E0XZZ Delivery of Products of Conception, External Approach (ICD-10-PCS; principal; 2023-03-25)
PROC: 3E0P7VZ Introduction of Hormone into Female Reproductive, Via Natural or Artificial Opening (ICD-10-PCS; 2023-03-25)
PROC: 3E0R3BZ Introduction of Anesthetic Agent into Spinal Canal, Percutaneous Approach (ICD-10-PCS; 2023-03-25)
PROC: 00HU33Z Insertion of Infusion Device into Spinal Canal, Percutaneous Approach (ICD-10-PCS; 2023-03-25)
DX: O10.92 Unspecified pre-existing hypertension complicating childbirth (principal); Z37.0 Single live birth; Z3A.39 39 weeks gestation of pregnancy; O99.824 Streptococcus B carrier state complicating childbirth; Z79.82 Long term (current) use of aspirin; O69.81X0 Labor and delivery complicated by cord around neck, without compression, not applicable or unspecified
CPT/HCPCS: 36415; 51702; 59025; 59409; 81003; 85014; 85018; 85027; 86592; 86850; 86900; 86901; A9270-GY; J0290; J2370; J2405; J2590; J3490; J7120